=== PATIENT | male | born 1945 | race Caucasian/White ===

== ENCOUNTER 2020-04-28 10:02 | Outpatient (CLI) | payer OTHER, SELFPAY ==
--- NOTE | ~2020-04-28 | CT_ITS ---
EXAMINATION: CT abdomen pelvis wo/w con INDICATION: Right kidney cancer TECHNIQUE: Computed tomographic images of the abdomen were obtained without intravenous contrast then images of the abdomen and pelvis were obtained after the administration of 100 cc of Omnipaque 350 i ntravenous contrast. The dose-length product (DLP) was 667.46 mGy-cm. Automated exposure control and iterative reconstruction technique were employed. COMPARISON: 09/25/2007 FINDINGS: Minimal dependent atelectasis is present in the lung bases. The heart size is normal. There is a small sliding hiatal hernia. The liver, pancreas, gallbladder, and adrenal glands are normal. T here are multiple chronic low attenuation lesions of the spleen which demonstrate T2 hyperintensity o n the comparison MRI, likely lymphangiomas, hemangiomas, or possibly old granulomatous disease. There is a 2.4 cm cyst of the right kidney lower pole. No suspicious renal or urothelial lesion is identif ied. There is a fat-containing left inguinal hernia. A right inguinal hernia contains a portion of th e anterior/inferolateral bladder wall. A small diverticulum is noted in the right posterior lateral b ladder wall. There is calcified atherosclerosis of the aorta and many of the other arteries. No patho logically enlarged abdominal or pelvic lymph nodes are identified. There is no free intraperitoneal g as or evidence of bowel obstruction. The appendix is normal. There are bilateral L5 pars defects with mild lumbar spondylosis at L5-S1.. IMPRESSION: 1. No suspicious renal or urothelial lesion identified. 2. Right inguinal hernia containing a small portion of the anterior/inferolateral bladder wall. Reviewed, dictated and finalized at location A. IMPRESSION: 1. No suspicious renal or urothelial lesion identified. 2. Right inguinal hernia containing a small portion of the anterior/inferolater al bladder wall.
[2020-04-28 10:40] LABS: Estimated Glomerular Filt Rate > 60
== END 2020-04-28 10:03 | disposition home or self-care (01) ==
LOC: ANHIMG 10:17
PROVIDERS: PCP Internal Medicine; Visit Provider Urology
DX: D41.01 Neoplasm of uncertain behavior of right kidney (principal); K40.90 Unilateral inguinal hernia, without obstruction or gangrene, not specified as recurrent
CPT/HCPCS: 74178; Q9967